=== PATIENT | male | born 2000 | race Two or more races ===

== ENCOUNTER 2021-02-05 21:44 | Emergency (ER) | payer OTHER ==
[~2021-02-05] VITALS: Ht 167.6 cm; Wt 68.0 kg
[2021-02-06] MEDS ORDERED: KETOROLAC TROMETH 30 MG/ML 1ML VIAL IV ONE (01:45)
[2021-02-06] MEDS ORDERED: fentaNYL CITRATE 100 MCG/2 ML VL IV ONE ×2 (01:45→05:15)
[2021-02-06] MEDS ORDERED: ONDANSETRON HCL 4 MG/2 ML VIAL IV ONE (01:45)
[2021-02-06] MEDS ORDERED: TETANUS-DIPTH-ACEL PERTUSSIS 0.5ML SYR Tdap IM ONE (05:15)
[2021-02-06] MEDS ORDERED: LIDOCAINE 2%HCL (LOCAL ANESTH.) INJ 10ml MDV IJ ONE (05:15)
[2021-02-06] MEDS ORDERED: cefTRIAXone 1GM/50ML D5W 50 ML IV ONE (05:15)
[2021-02-06] MEDS ORDERED: LIDOCAINE 2%HCL (LOCAL ANESTH.) INJ 20ML MDV ONE (05:25)
[2021-02-06] MEDS ORDERED: BACITRACIN TOP OINT 1 UD PKG TOP ONE (05:30)
[2021-02-06] MEDS ORDERED: LIDOCAINE 1% HCL (LOCAL ANESTH.) INJ 20ML MDV ONE (07:40)
[2021-02-06] MEDS ORDERED: LIDOCAINE 1% HCL (LOCAL ANESTH.) INJ 20ML MDV IJ ONE (11:30)
[2021-02-06 15:59] VITALS: BP 125/85
== END 2021-02-06 16:20 | disposition short-term general hospital (02) ==
LOC: ER 21:44
DX: S82.142A Displaced bicondylar fracture of left tibia, initial encounter for closed fracture (principal); S01.81XA Laceration without foreign body of other part of head, initial encounter; S61.512A Laceration without foreign body of left wrist, initial encounter; S20.312A Abrasion of left front wall of thorax, initial encounter; S50.812A Abrasion of left forearm, initial encounter; R41.82 Altered mental status, unspecified; V86.59XA Driver of other special all-terrain or other off-road motor vehicle injured in nontraffic accident, initial encounter; Y93.89 Activity, other specified; Y92.488 Other paved roadways as the place of occurrence of the external cause; Y99.8 Other external cause status
CPT/HCPCS: 12002; 12011; 70450; 71045; 72125; 73090; 73110; 73562; 73700; 90471; 90715; 96365; 96375; 96376; 99285; J0696; J1885; J2001; J2405; J3010; 29505